=== PATIENT | female | born 2000 | race Caucasian/White ===

== ENCOUNTER → 2018-05-10 15:09 | Outpatient (CLI) | payer BC, SELFPAY | PROVIDERS: Family Provider Obstetrics & Gynecology; PCP Obstetrics & Gynecology; Visit Provider Obstetrics & Gynecology | DX: O02.1 Missed abortion (principal); Z3A.12 12 weeks gestation of pregnancy | CPT/HCPCS: 36415; 86850; 86900 ==

== ENCOUNTER → 2018-08-23 11:05 | Outpatient (CLI) | payer BC, SELFPAY ==
[2018-08-23 12:23] LABS: hCG Titer Quant., Serum 5717 mIU/mL (<9 non-preg)
== END ==
PROVIDERS: Family Provider Obstetrics & Gynecology; PCP Obstetrics & Gynecology; Referring Provider Obstetrics & Gynecology; Visit Provider Obstetrics & Gynecology
DX: Z34.90 Encounter for supervision of normal pregnancy, unspecified, unspecified trimester (principal)
CPT/HCPCS: 36415; 84702

== ENCOUNTER → 2018-08-25 11:14 | Outpatient (CLI) | payer BC, SELFPAY ==
[2018-08-25 12:17] LABS: hCG Titer Quant., Serum 7288 mIU/mL (<9 non-preg)
== END ==
PROVIDERS: Visit Provider Obstetrics & Gynecology
DX: Z34.90 Encounter for supervision of normal pregnancy, unspecified, unspecified trimester (principal)
CPT/HCPCS: 36415; 84702

== ENCOUNTER → 2018-08-27 15:11 | Outpatient (CLI) | payer BC, SELFPAY ==
[2018-08-27 16:18] LABS: hCG Titer Quant., Serum 7809 mIU/mL (<9 non-preg)
== END ==
PROVIDERS: Visit Provider Obstetrics & Gynecology
DX: O20.0 Threatened abortion (principal); Z3A.00 Weeks of gestation of pregnancy not specified
CPT/HCPCS: 36415; 84702

== ENCOUNTER → 2018-08-28 16:12 | Outpatient (CLI) | payer BC, SELFPAY ==
[2018-08-28 17:28] LABS: Progesterone Level 4.82 ng/mL (See Comment)
== END ==
PROVIDERS: Referring Provider Obstetrics & Gynecology; Visit Provider Obstetrics & Gynecology
DX: O20.0 Threatened abortion (principal); Z3A.00 Weeks of gestation of pregnancy not specified
CPT/HCPCS: 36415; 84144

== ENCOUNTER → 2018-08-29 16:20 | Outpatient (CLI) | payer BC, SELFPAY ==
[2018-08-31 16:07] LABS: Dilute Prothrombin Time (dPT) 35.9 sec (0.0-55.0); Dilute Russell Viper Venom 29.8 sec (0.0-47.0); PTT-LA 36.2 sec (0.0-51.9); Thrombin Time 16.9 sec (0.0-23.0); dPT Confirm Ratio 0.91 Ratio (0.00-1.40)
[2018-09-01 08:26] LABS: Interpretation Comment: (.)
== END ==
PROVIDERS: Referring Provider Obstetrics & Gynecology; Visit Provider Obstetrics & Gynecology
DX: N96 Recurrent pregnancy loss (principal)
CPT/HCPCS: 36415

== ENCOUNTER → 2018-08-30 10:42 | Outpatient (CLI) | payer BC, SELFPAY | PROVIDERS: Referring Provider Obstetrics & Gynecology; Visit Provider Obstetrics & Gynecology | DX: Z00.00 Encounter for general adult medical examination without abnormal findings (principal) ==

== ENCOUNTER → 2018-09-02 11:49 | Outpatient (CLI) | payer BC, SELFPAY ==
--- NOTE | 2018-09-02 11:51 | US_ITS ---
STUDY: FIRST TRIMESTER OBSTETRICAL ULTRASOUND REASON FOR EXAM: Female, 18 years old. viability. LMP: July 12, 2018. TECHNIQUE: Transvaginal TECHNICAL QUALITY: Adequate. PRIOR ULTRASOUND: None. FINDINGS: There is no demonstrated intrauterine gestational sac. There is no demonstrated yolk sac. The placenta is non-visualized. There is no demonstrated embryo ( pole). The estimated gestation age (EGA) by LMP is 7 weeks, 3 days. The estimated date of delivery (MERT) by LMP is April 18, 2019. The uterus measures 7.5 cm x 4.1 cm x 4.2 cm. The endometrium measures 1.3 cm in thickness. There is no demonstrated uterine fibroid. The cervix is closed. The right ovary measures 2.9 cm x 2.8 cm x 1.9 cm. There is no right ovarian cyst. There is no visualized right adnexal mass or complex lesion. The left ovary measures 2.6 cm x 2.0 cm x 1.1 cm. There is no left ovarian cyst. There is no visualized left adnexal mass or complex lesion. There is no fluid in the cul de sac. US/Transvaginal w/Preg US IMPRESSION: No intrauterine gestation is seen. Thickened endometrium. Electronically Signed: Rex Baig MD at 16:00 EST Tel [phone], Service support ,
== END ==
PROVIDERS: Referring Provider Obstetrics & Gynecology; Visit Provider Obstetrics & Gynecology
DX: O02.1 Missed abortion (principal)
CPT/HCPCS: 76817

== ENCOUNTER → 2018-10-17 12:46 | Outpatient (CLI) | payer BC, SELFPAY ==
[2018-10-17 14:06] LABS: Progesterone Level 6.68 ng/mL (See Comment)
== END ==
PROVIDERS: Referring Provider Obstetrics & Gynecology; Visit Provider Obstetrics & Gynecology
DX: N92.6 Irregular menstruation, unspecified (principal)
CPT/HCPCS: 36415; 84144

== ENCOUNTER → 2018-10-31 16:55 | Outpatient (CLI) | payer BC, SELFPAY ==
[2018-10-31 16:10] VITALS: BMI 22.8
[2018-10-31 17:21] LABS: Absolute Lymphocyte Count 2.03 X10^3/ul (0.83-4.51); Absolute Neutrophil Count 4.7 X10^3/uL (2.0-7.7); Basophil# 0.06 X10^3/uL; Basophil% 0.8 % (0-1); Eosinophil# 0.11 X10^3/uL; Eosinophils% 1.5 % (0-5); Hematocrit 41.4 % (37-47); Hemoglobin 13.5 g/dl (12.0-15.0); Lymphocyte # 2.03 X10^3/ul (4.0); Mean Corp Hgb Conc 32.6 g/gl (32-36); Mean Corpuscular Hgb 29.4 pg (27.0-32.0); Mean Corpuscular Volume 90.2 fL (81-99); Mean Platelet Vol. 10.3 fl (6.2-12.0); Monocyte# 0.62 X10^3/uL; Monocyte% 8.3 % (0-10); Neutrophil # 4.68 X10^3/uL (2.7-7.7); Neutrophil % 62.3 % (47-70); Platelet Count 224 K/mm3 (150-450); RBC Distribution Width CV 12.8 % (11.6-14.6); Red Blood Count 4.59 M/mm3 (4.2-5.4); White Blood Count 7.5 K/mm3 (4.4-11.0)
[2018-10-31 17:25] LABS: POSITIVE COUNT NO; POSITIVE DIFFERENTIAL NO; POSITIVE MORPHOLOGY NO
[2018-10-31 18:35] LABS: HIV - WCH Non-Reactive (Nonreactive); Rubella IgG < 0.2 IU/mL
[2018-10-31 21:48] LABS: Chlamydia Trachomatis by PCR Negative (Negative); Neisserai gonorrhoeae by PCR Negative (Negative); Probe Check PASS; Sample Adequacy Control PASS; Specimen Processing Control PASS
[2018-11-01 03:32] LABS: Rapid Plasmin Reagin (RPR) NONREACTIVE (NONREACTIVE)
[2018-11-02 20:27] LABS: HEPATITIS B SURFACE AG Negative (Negative)
== END ==
PROVIDERS: Referring Provider Obstetrics & Gynecology; Visit Provider Obstetrics & Gynecology
DX: Z34.90 Encounter for supervision of normal pregnancy, unspecified, unspecified trimester (principal)
CPT/HCPCS: 36415; 85025; 86592; 86703; 86762; 86850; 86900; 87086; 87340; 87491; 87591

== ENCOUNTER → 2018-12-13 10:53 | Outpatient (CLI) | payer BC, SELFPAY ==
[2018-11-29 11:52] VITALS: BMI 22.8
[2018-12-13 12:05] LABS: Progesterone Level 33.34 ng/mL (See Comment)
== END ==
PROVIDERS: Nurse Practitioner Women's Health; Visit Provider Obstetrics & Gynecology
DX: Z87.59 Personal history of other complications of pregnancy, childbirth and the puerperium (principal)
CPT/HCPCS: 36415; 84144

== ENCOUNTER → 2019-01-27 15:43 | Outpatient (CLI) | payer BC, SELFPAY ==
[2019-01-20 10:59] VITALS: BMI 22.8
--- NOTE | 2019-01-27 15:46 | US_ITS ---
STUDY: SECOND AND THIRD TRIMESTER OBSTETRICAL ULTRASOUND REASON FOR EXAM: Female, 18 years old. Routine survey. LMP: September 13, 2018. TECHNIQUE: Transabdominal TECHNICAL QUALITY: Adequate. PRIOR ULTRASOUND: None. FINDINGS: There is a single intrauterine fetus. The fetus is in an transverse lie with the head on the maternal left side. There is demonstrated cardiac activity with a heart rate of 143 bpm. There is a normal amniotic fluid volume. The largest amniotic fluid pocket measures 3.6 cm x 4.8 cm. The amniotic fluid index (RAULITO) is within normal limits. The placenta is anterior in location and is not low lying. There are Grade 0 placental changes. The cervix measures 4.9 cm in length. The bilateral adnexal regions are normal. BIOMETRY: BPD: 4.6 cm: 19 weeks, 6 days HC: 17.4 cm: 20 weeks, 0 days AC: 14.4 cm: 19 weeks, 3 days FL: 3.1 cm: 19 weeks, 5 days CI: 78% FL/BPD: 68% FL/HC: FL/AC: 22% HC/AC: 1.21 age by current US: 19 weeks, 6 days. MERT by current US: June 17, 2019. Estimated weight: 306 grams, +/- 45 grams, 60 %. Age by LMP: 19 weeks, 3 days. MERT by LMP: June 20, 2019. ANATOMY: Gender: Male Cranium: Normal lateral ventricles. Normal choroid plexus. Normal cerebellum. Normal cisterna magna. Normal face, nose and lips. Chest: Normal 4-chamber heart. Abdomen/Pelvis: Normal diaphragm. Normal stomach. Normal abdominal wall. Normal cord insertion. Normal 3 vessel cord. Normal kidneys. Normal bladder. Spine: Normal cervical spine. Normal thoracic spine. Normal lumbar spine. Normal sacrum. Extremities: Normal bilateral upper extremities. Normal bilateral lower extremities. US/OB Anatomy Scan IMPRESSION: Single live intrauterine gestation with a mean gestational age of 19 weeks and 6 days. Electronically Signed: Rex Baig at 10:12 EDT , Service support ,
== END ==
PROVIDERS: Referring Provider Obstetrics & Gynecology; Visit Provider Obstetrics & Gynecology
DX: Z36.9 Encounter for antenatal screening, unspecified (principal)
CPT/HCPCS: 76805